=== PATIENT | female | born 1975 | race Caucasian/White ===

== ENCOUNTER 2018-12-28 09:40 | Emergency (ER) | payer BC ==
[~2018-12-28] VITALS: Ht 162.6 cm; Wt 81.6 kg
[2018-12-28 09:43] VITALS: BP_SYST 131
--- NOTE | 2018-12-28 09:50 | NUR ---
Patient to ER bed 8 to gown for evaluation. Side rails up. Report given to Aracelis SALVADOR.
--- NOTE | 2018-12-28 09:55 | NUR ---
PATIENT CAME IN COMPLAINING OF LEFT SIDED FACIAL NUMBNESS FOR PAST WEEK. PATIENT ALSO COMPLAINING OF HEADACHE FOR PAST 3 DAYS. PATIENT STATES SHES BEEN TAKING ALIEVE. PATIENT ALSO COMPLAINING OF LEFT ARM/LEG NUMBNESS THAT STARTED YESTERDAY. PATIENT COMPLAINING OF BLURRED VISION THAT STARTED TODAY. PATIENT CURRENTLY COMPLAINING OF 8/10 NECK PAIN. PATIENT ALERT AND ORIENTED X4. PATIENT DENIES SOB, NAUSEA, AND VOMITING. PATIENT HAS SYMETRICAL FACE AND NO DEFICET.
--- NOTE | 2018-12-28 10:06 | NUR ---
ER Dr. SHELTON at bedside examining patient.
[2018-12-28] MEDS ORDERED: KETOROLAC TROMETHAMINE 30 MG VIAL IM ONE (10:30)
--- NOTE | 2018-12-28 10:52 | NUR ---
PATIENT LEAVING TO CT VIA WHEEL CHAIR IN STABLE CONDITION.
--- NOTE | 2018-12-28 11:04 | NUR ---
PATIENT BACK FROM CT IN STABLE CONDITION.
--- NOTE | 2018-12-28 11:30 | NUR ---
Patient given written and verbal discharge instructions and verbalizes understanding. ER MD discussed with patient the results and treatment provided. Patient in stable condition. ID arm band removed. Rx of VALIUM AND NAPROSEN given. Patient educated on pain management and to follow up with PMD. Pain Scale 2/10 TOLERABLE. Opportunity for questions provided and answered. Medication side effect fact sheet provided.
[2018-12-28 11:31] VITALS: BP_SYST 131
== END 2018-12-28 11:30 | disposition home or self-care (01) ==
LOC: SED 09:40
DX: M54.81 Occipital neuralgia (principal); R51 Headache; R20.2 Paresthesia of skin; Z88.0 Allergy status to penicillin
CPT/HCPCS: 70450; 81025; 82962; 96372; 99284; J1885

== ENCOUNTER 2024-01-12 13:47 | Emergency (ER) | payer BC, OTHER ==
[~2024-01-12] VITALS: Ht 162.6 cm; Wt 93.0 kg
[2024-01-12 13:50] VITALS: BP_SYST 126; PULSE 55; RESP 18; TEMP 97; O2SAT 99
[2024-01-12] MEDS: KETOROLAC TROMETHAMINE 30 MG VIAL IM ONE (14:32)
[2024-01-12 15:11] LABS: BASOPHILS % (AUTO) 0.6 % (0.0-2.0); EOSINOPHILS # (AUTO) 0.1 K/uL (0.0-0.4); EOSINOPHILS % (AUTO) 1.9 % (0.0-4.0); HEMATOCRIT 39.5 % (36-48); HEMOGLOBIN 13.5 g/dL (12.0-16.0); LYMPHOCYTES % (AUTO) 34.1 % (20.5-51.5); MEAN CORPUSCULAR HEMOGLOBIN 32 pg (27-31); MEAN CORPUSCULAR HGB CONC 34 % (32-36); MEAN CORPUSCULAR VOLUME 92 fL (79.0-98.0); MONOCYTES # (AUTO) 0.5 K/uL (0.0-1.0); MONOCYTES % (AUTO) 8.2 % (1.7-9.3); NEUTROPHILS # (AUTO) 3.2 K/uL (1.8-7.7); NEUTROPHILS % (AUTO) 55.2 % (40.0-70.0); PLATELET COUNT (AUTO) 223 K/uL (130-430); RED BLOOD CELL COUNT(AUTO) 4.27 MIL/uL (4.2-6.2); WHITE BLOOD COUNT (AUTO) 5.8 K/uL (4.8-10.8)
[2024-01-12 15:17] LABS: ALBUMIN 3.9 g/dL (3.4-4.8); BILIRUBIN,DIRECT 0.1 mg/dL (0.0-0.3); CALCIUM 9.4 mg/dL (8.4-11.0); CREATININE 0.68 mg/dL (0.55-1.30); TOTAL BILIRUBIN 0.6 mg/dL (0.0-1.0); TOTAL PROTEIN, SERUM 7.5 g/dL (6.4-8.3)
[2024-01-12] MEDS ORDERED: NAPR-688 PO (15:34)
[2024-01-12 15:38] VITALS: BP_SYST 126; PULSE 55; RESP 18; TEMP 97; O2SAT 99
== END 2024-01-12 15:45 | disposition home or self-care (01) ==
LOC: SED 13:47
DX: R74.01 Elevation of levels of liver transaminase levels (principal); R10.9 Unspecified abdominal pain; R53.83 Other fatigue; Z88.0 Allergy status to penicillin; Z79.899 Other long term (current) drug therapy
CPT/HCPCS: 99285; 74176; 80076; 80048; 83690; 85025; 36415; 96372; J1885